=== PATIENT | female | born 2000 | race Hispanic/Latino ===

== ENCOUNTER 2024-06-02 06:58 | Outpatient (CLI) | payer OTHER | END 2024-06-02 06:59 | disposition home or self-care (01) | LOC: BICULT 06:58 | PROVIDERS: ATTEND Registered Nurse Hospice | DX: R10.11 Right upper quadrant pain (principal); K82.4 Cholesterolosis of gallbladder; K76.0 Fatty (change of) liver, not elsewhere classified | CPT/HCPCS: 76705 ==